=== PATIENT | male | born 2005 | race Asian ===

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

== ENCOUNTER 2025-03-12 00:16 | Emergency (ER) | payer MEDICAID ==
[~2025-03-12] VITALS: Ht 170.2 cm; Wt 57.9 kg
--- NOTE | 2025-03-12 01:01 | ED.PDOC ---
GI ASSESSMENT HPI Comments C/C of RLQ pain x5 days. Pt states its intermittent, sharp and radiating to right thigh. Denies N/V/D. LBM today, WNL. Denies dysuria. VSS. NKDA. Denies fever, chills, nausea, vomiting, diarrhea, chest pain, shortness a breath, recent travel, or recent known ill contacts. Chief Complaint: Abdominal Pain Time Seen by MD: 00:18 Primary Care Provider: NONE Reviewed Notes: Nurses Notes, Medications, Allergies Allergies: Coded Allergies: NO KNOWN ALLERGIES (Unverified , 10/04/11) Information Source: Patient Mode of Arrival: Ambulatory Past Medical History PAST MEDICAL HISTORY: Denies Surgical History: Denies all surgeries Family History Family History: Unknown Social History Smoker: Non-Smoker Alcohol: Denies ETOH Use Drugs: Denies Drug Use Lives In: Home Constitutional: denies: chills, diaphoresis, fatigue, fever, malaise, sweats, weakness, others EENTM: denies: blurred vision, double vision, ear bleeding, ear discharge, ear drainage, ear pain, ear ringing, eye pain, eye redness, hearing loss, mouth pain, mouth swelling, nasal discharge, nose bleeding, nose congestion, nose pain, photophobia, tearing, throat pain, throat swelling, voice changes, others Respiratory: denies: cough, hemoptysis, orthopnea, SOB at rest, shortness of breath, SOB with excertion, stridor, wheezing, others Cardiovascular: denies: chest pain, dizzy spells, diaphoresis, Dyspnea on exertion, edema, irregular heart beat, left arm pain, lightheadedness, palpitations, PND, syncope, others Gastrointestinal: reports: abdominal pain; denies: abdomen distended, blood streaked bowels, constipated, diarrhea, dysphagia, difficulty swallowing, hematemesis, melena, nausea, poor appetite, poor fluid intake, rectal bleeding, rectal pain, vomiting, others Genitourinary: denies: burning, dysuria, flank pain, frequency, hematuria, incontinence, penile discharge, penile sore, pain, testicle pain, testicle swelling, urgency, others Neurological: denies: dizziness, fainting, headache, left sided numbness, left sided weakness, numbness, paresthesia, pre-existing deficit, right sided numbness, right sided weakness, seizure, speech problems, tingling, tremors, weakness, others Musculoskeletal: denies: back pain, gout, joint pain, joint swelling, muscle pain, muscle stiffness, neck pain, others Integumetry: denies: bruises, change in color, change in hair/nails, dryness, laceration, lesions, lumps, rash, wounds, others Allergic/Immunocompromised: denies: Difficulty Healing, Frequent Infections, Hives, Itching, others Hematologic/Lymphatic: denies: anemia, blood clots, easy bleeding, easy bruising, swollen glands, others Endocrine: denies: excessive hunger, excessive sweating, excessive thirst, excessive urination, flushing, intolerance to cold, intolerance to heat, unexplained weight gain, unexplained weight loss, others Psychiatric: denies: anxiety, bipolar disorder, depression, hopeless, panic disorder, schizophrenia, sleepless, suicidal, others Physical Exam General Appearance: No Apparent Distress, Normal HEENT: Normal ENT Inspection, Pharynx Normal, TMs Normal Neck: Full Range of Motion, Non-Tender Respiratory: Lungs Clear, No Respiratory Distress, Normal Breath Sounds Cardiovascular: No Edema, No JVD, No Murmur, No Gallop, Normal Peripheral Pulses, Regular Rate/Rhythm Breast Exam: Deferred Gastrointestinal: No Organomegaly, Non Tender, No Pulsatile Mass, Normal Bowel Sounds, Soft Genitalia: Deferred Pelvic: Deferred Rectal: Deferred Extremities: Normal capillary refill, Normal inspection, Normal range of motion, Non-tender, No pedal edema Musculoskeletal : Apperance: Normal Neurologic: Alert, correctional officer chief II-XII nml as Tested, No Motor Deficits, Normal Affect, Normal Mood, No Sensory Deficits Cerebellar Function: Normal Reflexes: Normal Skin: Dry, Normal Color, Warm Lymphatic: No Adenopathy Was a procedure done? Was a procedure done?: No GI differential Dx Differential Diagnosis: Gastroenteritis, UTI, Urolithiasis, Kidney Stone X-Ray, Labs, Meds, VS Vital Signs Date Time Temp Pulse Resp B/P (MAP) Pulse Ox O2 Delivery O2 Flow Rate FiO2 03/12/25 00:49 99.2 79 16 133/86 (102) 95 99.2 Lab Test 03/12/25 01:10 Range/Units White Blood Count 8.3 4.4-10.8 10^3/uL Red Blood Count 5.29 4.5-5.90 10^6/uL Hemoglobin 15.5 13.5-17.5 g/dL Hematocrit 46.1 41.0-53.0 % Mean Corpuscular Volume 87.1 80.0-100.0 fL Mean Corpuscular Hemoglobin 29.4 28.0-32.0 pg Mean Corpuscular Hemoglobin Concent 33.7 32.0-36.0 g/dL Red Cell Distribution Width 13.0 11.8-14.3 % Platelet Count 256 140-450 10^3/uL Mean Platelet Volume 7.5 6.9-10.8 fL Neutrophils (%) (Auto) 63.8 37.0-80.0 % Lymphocytes (%) (Auto) 28.6 10.0-50.0 % Monocytes (%) (Auto) 6.6 0.0-12.0 % Eosinophils (%) (Auto) 0.6 0.0-7.0 % Basophils (%) (Auto) 0.4 0.0-2.0 % Neutrophils # (Auto) 5.3 1.6-8.6 10 ^3/uL Lymphocytes # (Auto) 2.4 0.4-5.4 10 ^3/uL Monocytes # (Auto) 0.6 0-1.3 10 ^3/uL Eosinophils # (Auto) 0 0-0.8 10 ^3/uL Basophils # (Auto) 0 0-0.2 10 ^3/uL Nucleated Red Blood Cells 0.1 % Sodium Level 140 136-145 mmol/L Potassium Level 4.1 3.5-5.1 mmol/L Chloride Level 106 98-107 mmol/L Carbon Dioxide Level 28 20-31 mmol/L Anion Gap 6 5-15 Blood Urea Nitrogen 20 9-23 mg/dL Creatinine 0.97 0.700-1.30 mg/dL Glomerular Filtration Rate Calc 113 >90 mL/min BUN/Creatinine Ratio 20.6 H 10.0-20.0 Serum Glucose 91 74-106 mg/dL Calcium Level 10.3 8.7-10.4 mg/dL Total Bilirubin 1.5 H 0.2-1.0 mg/dL Aspartate Amino Transferase (AST) 19 13-40 U/L Alanine Aminotransferase (ALT) 25 7-40 U/L Alkaline Phosphatase 70 46-116 U/L Total Protein 7.5 5.7-8.2 g/dL Albumin 5.2 H 3.2-4.8 g/dL X-Ray, Labs, Meds, VS Comment CBC, CMP WITHIN NORMAL LIMITS. PATIENT NOTES IMPROVEMENT PAIN REQUESTING DISCHARGE AT THIS TIME. PHYSICAL EXAM GROSSLY BENIGN PATIENT WAS RUNNING LOWER QUADRANT AND ABDOMEN NONTENDER ON PALPATION NEGATIVE REBOUND TENDERNESS PATIENT AFEBRILE VITAL SIGNS WITHIN NORMAL LIMITS. ADVISED TO REST INCREASE P.O. FLUIDS WITH ELECTROLYTES, LIVES TO TRIAL [id number]. ADVISED TO FOLLOW UP WITH HIS PCP IN 1-2 DAYS FOR RE-EVALUATION ALSO ADVISED ON ER RETURN PRECAUTION PATIENT INDICATES UNDERSTANDING AND AGREES WITH DISCHARGE PLAN OF CARE. Time of 1ST Reevaluation: 00:25 Reevaluation 1ST: Unchanged Time of 2ND Reevaluation: 02:13 Reevaluation 2ND: Improved Patient Education/Counseling: Diagnosis, Treatment, Prognosis, Need For Follow Up Family Education/Counseling: Diagnosis, Treatment, Prognosis, Need For Follow Up Departure 1 Departure Time of Disposition: 02:13 Impression: Primary Impression: Abdominal pain Qualified Codes: R10.31 - Right lower quadrant pain Disposition: 01 HOME / SELF CARE / HOMELESS Condition: Stable Discharged With: Relative (Mother) Critical Care Note Critical Care Time?: No Stability Stability form required: RADHA Brenner March 12, 2025 01:01
[2025-03-12 01:25] LABS: Basophils # (auto) 0 10 ^3/uL (0-0.2); Basophils % (auto) 0.4 % (0.0-2.0); Eosinophils # (auto) 0 10 ^3/uL (0-0.8); Eosinophils % (auto) 0.6 % (0.0-7.0); Hematocrit 46.1 % (41.0-53.0); Hemoglobin 15.5 g/dL (13.5-17.5); Lymphocytes # (auto) 2.4 10 ^3/uL (0.4-5.4); Lymphocytes % (auto) 28.6 % (10.0-50.0); Mean Corpuscular Hemoglobin 29.4 pg (28.0-32.0); Mean Corpuscular Hgb Conc. 33.7 g/dL (32.0-36.0); Mean Corpuscular Volume 87.1 fL (80.0-100.0); Monocytes # (auto) 0.6 10 ^3/uL (0-1.3); Monocytes % (auto) 6.6 % (0.0-12.0); Neutrophils # (auto) 5.3 10 ^3/uL (1.6-8.6); Neutrophils % (auto) 63.8 % (37.0-80.0); Nucleated Red Blood Cells % 0.1 %; Platelet Count (auto) 256 10^3/uL (140-450); Red Blood Cells 5.29 10^6/uL (4.5-5.90); White Blood Cell 8.3 10^3/uL (4.4-10.8)
--- NOTE | 2025-03-12 01:40 | DVH ---
Date: 03/12/2025 01:22 AM Examination: XY KUB ABDOMEN SINGLE VIEW History: rlq pain Comparison: None TECHNIQUE: Frontal views of the abdomen was obtained. FINDINGS: Scattered gas throughout nondilated small and large bowel. Osseous structures are grossly intact. No radiopaque foreign body. Lung bases are clear. IMPRESSION: No evidence of bowel obstruction.
[2025-03-12 01:44] LABS: Alanine Aminotransferase 25 U/L (7-40); Alkaline Phosphatase 70 U/L (46-116); Anion Gap 6 (5-15); Aspartate Aminotransferase 19 U/L (13-40); BUN/Creatinine Ratio 20.6 (10.0-20.0); Blood Urea Nitrogen 20 mg/dL (9-23); Calcium 10.3 mg/dL (8.7-10.4); Carbon Dioxide 28 mmol/L (20-31); Chloride 106 mmol/L (98-107); Glucose 91 mg/dL (74-106); Potassium 4.1 mmol/L (3.5-5.1); Sodium 140 mmol/L (136-145); Total Protein 7.5 g/dL (5.7-8.2)
[2025-03-12 01:45] LABS: Albumin 5.2 g/dL (3.2-4.8)
[2025-03-12 01:58] LABS: Bilirubin, Total 1.5 mg/dL (0.2-1.0)
[2025-03-12 03:15] VITALS: BP 126/61; PULSE 66; RESP 12; TEMP 98; O2SAT 100
== END 2025-03-12 03:24 | disposition home or self-care (01) ==
LOC: ER 00:16
DX: R10.31 Right lower quadrant pain (principal)
CPT/HCPCS: 36415; 74018; 80053; 85025